=== PATIENT | female | born 1950 | race Caucasian/White ===

== ENCOUNTER 2023-03-07 08:39 | Emergency (ER) | payer MEDICAID ==
[~2023-03-07] VITALS: Ht 162.6 cm; Wt 102.1 kg
[2023-03-07] MEDS ORDERED: KETOROLAC TROMETHAMINE INJ 30 MG/ML VIAL ONE (09:28)
[2023-03-07] MEDS ORDERED: HYDROCODONE/APAP 5/325MG TABLET ONE (09:28)
[2023-03-07] MEDS ORDERED: HYDROCODONE/APAP 5/325MG TABLET PO ONE (09:30)
[2023-03-07] MEDS ORDERED: KETOROLAC TROMETHAMINE INJ 30 MG/ML VIAL IM ONE (09:30)
[2023-03-07] MEDS ORDERED: PROPOFOL 0 ML IV ONE (09:39)
[2023-03-07] MEDS ORDERED: PROPOFOL 20 ML IV ONE (09:39)
[2023-03-07] MEDS ORDERED: PROPOFOL 200 MG/20 ML VIAL IV ONE ×3 (10:00)
[2023-03-07 10:20] VITALS: TEMP 98
[2023-03-07] MEDS ORDERED: HYDR-4209 PO (10:48)
[2023-03-07 11:43] VITALS: BP 124/68; O2SAT 97
== END 2023-03-07 11:44 | disposition home or self-care (01) ==
LOC: EDBD → ER 08:46
DX: S53.195A Other dislocation of left ulnohumeral joint, initial encounter (principal); S42.412A Displaced simple supracondylar fracture without intercondylar fracture of left humerus, initial encounter for closed fracture; I10 Essential (primary) hypertension; Z79.899 Other long term (current) drug therapy; W01.0XXA Fall on same level from slipping, tripping and stumbling without subsequent striking against object, initial encounter; Y93.89 Activity, other specified; Y92.89 Other specified places as the place of occurrence of the external cause; Y99.8 Other external cause status
CPT/HCPCS: 99285; 24600; 99152; 73080 ×2; 73090; 73060; 96372; J2704; J1885; G0500

== ENCOUNTER 2023-03-10 13:19 | Emergency (ER) | payer MEDICAID ==
[~2023-03-10] VITALS: Ht 162.6 cm; Wt 95.3 kg
[~2023-03-10 13:19] MED LIST: HYDR-4209 PO
[2023-03-10] MEDS ORDERED: IBUP-1955 PO (14:53)
[2023-03-10 15:53] VITALS: BP 142/68; TEMP 98.4; O2SAT 100
== END 2023-03-10 15:54 | disposition home or self-care (01) ==
LOC: ER 13:25
DX: S53.105D Unspecified dislocation of left ulnohumeral joint, subsequent encounter (principal); I10 Essential (primary) hypertension; X58.XXXD Exposure to other specified factors, subsequent encounter
CPT/HCPCS: 73070-TC; 73100-TC